=== PATIENT | female | born 1995 | race African-American/Black ===

== ENCOUNTER 2019-09-24 21:17 | Emergency (ER) | payer MEDICAID, OTHER ==
[~2019-09-24] VITALS: Ht 160 cm; Wt 72.6 kg
[2019-09-24 21:27] VITALS: BP 123/73
[2019-09-24] MEDS ORDERED: IBUPROFEN600 M1 ORAL (22:23)
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
[2019-09-24 22:44] VITALS: BP_SYST 112; BP_SYST 123; BP_DIAS 63; BP_DIAS 73
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
== END 2019-09-24 22:44 | disposition home or self-care (01) ==
LOC: EMR 21:52
DX: S09.90XA Unspecified injury of head, initial encounter (principal); S16.1XXA Strain of muscle, fascia and tendon at neck level, initial encounter; V43.52XA Car driver injured in collision with other type car in traffic accident, initial encounter; Y92.410 Unspecified street and highway as the place of occurrence of the external cause
CPT/HCPCS: 70450; Z7502; 99284